=== PATIENT | female | born 1965 | race African-American/Black ===

== ENCOUNTER 2019-03-11 18:50 | Emergency (ER) | payer SELFPAY ==
[2019-03-11] MEDS ORDERED: Ketorolac Tromethamine 30 MG/ML VIAL ONE (19:11)
== END 2019-03-11 19:28 | disposition home or self-care (01) ==
LOC: ERS 18:50
DX: M25.562 Pain in left knee (principal); G89.29 Other chronic pain; F32.9 Major depressive disorder, single episode, unspecified; I10 Essential (primary) hypertension
CPT/HCPCS: 96372; 99283; J1885

== ENCOUNTER 2019-03-28 08:06 | Emergency (ER) | payer SELFPAY ==
[2019-03-28] MEDS ORDERED: cloNIDine 0.1 MG TAB ONE (09:34)
== END 2019-03-28 10:55 | disposition home or self-care (01) ==
LOC: ERS 08:06
DX: J06.9 Acute upper respiratory infection, unspecified (principal); I10 Essential (primary) hypertension; F32.9 Major depressive disorder, single episode, unspecified
CPT/HCPCS: 87804; 99283

== ENCOUNTER 2020-06-21 11:30 | Emergency (ER) | payer SELFPAY | END 2020-06-21 13:29 | disposition home or self-care (01) | LOC: ERS 11:30 | DX: M25.562 Pain in left knee (principal); M54.5 Low back pain; I10 Essential (primary) hypertension | CPT/HCPCS: 99283 ==

== ENCOUNTER 2021-06-09 15:49 | Emergency (ER) | payer SELFPAY ==
[2021-06-09 21:47] LABS: SARS-CoV-2 PCR by NAA Not Detected (NotDetected)
== END 2021-06-09 17:52 | disposition home or self-care (01) ==
LOC: ERS 15:49
DX: R11.0 Nausea (principal); Z20.822 Contact with and (suspected) exposure to COVID-19
CPT/HCPCS: 99283; U0003; U0005

== ENCOUNTER 2021-09-17 11:10 | Emergency (ER) | payer SELFPAY | END 2021-09-17 11:41 | disposition home or self-care (01) | LOC: ERS 11:10 | DX: B86 Scabies (principal); I10 Essential (primary) hypertension | CPT/HCPCS: 99282 ==

== ENCOUNTER 2021-11-11 02:25 | Emergency (ER) | payer SELFPAY ==
[2021-11-11] MEDS ORDERED: cloNIDine 0.1 MG TAB ONE (04:08)
[2021-11-11] MEDS ORDERED: Lisinopril 10 MG TAB ONE (04:08)
[2021-11-11] MEDS ORDERED: Acetaminophen 500 MG TAB ONE (04:08)
[2021-11-11] MEDS ORDERED: Amlodipine 5 MG TAB ONE (04:08)
== END 2021-11-11 05:02 | disposition home or self-care (01) ==
LOC: ERS 02:25
DX: I10 Essential (primary) hypertension (principal); Z79.899 Other long term (current) drug therapy
CPT/HCPCS: 99283

== ENCOUNTER 2022-05-18 06:13 | Emergency (ER) | payer SELFPAY ==
[2022-05-18] MEDS ORDERED: hydrALAZINE 25 MG TAB ONE (08:05)
[2022-05-18] MEDS ORDERED: Lisinopril 10 MG TAB ONE (08:05)
[2022-05-18] MEDS ORDERED: Acetaminophen 500 MG TAB ONE (08:05)
[2022-05-18 08:20] LABS: #Eosinphils 0.2 thou/uL (0.0-0.7); #Lymphocytes 1.6 thou/uL (1.20-3.40); #Monocytes 0.4 thou/uL (0.11-0.59); #Neutrophils 4.6 thou/uL (1.40-6.50); %Basophils 0.7 % (0.0-1.0); %Eosinophils 2.7 % (0.0-10.0); %Lymphocytes 22.8 % (21.0-51.0); %Monocytes 6.5 % (0.0-10.0); %Neutrophils 67.2 % (42.0-75.0); Mean Corpuscular HGB CONC 33.3 g/dL (32.0-36.0); Mean Corpuscular Hemoglobin 30.2 pg (27.0-31.0); Mean Corpuscular Volume 90.7 fl (78.0-98.0); Mean Platelet Volume 6.7 fL (7.4-10.4); Platelet Count 470 10x3/uL (130-400); RBC Distribution Width 12.3 % (11.5-14.5); Red Blood Cell (RBC) Count 4.97 mill/uL (4.20-5.40); White Blood Cell (WBC) Count 6.8 10x3/uL (4.8-10.8)
[2022-05-18 08:32] LABS: ALT (SGPT) 11 U/L (8-55); AST (SGOT) 19 U/L (5-34); Albumin 4.4 g/dL (3.5-5.0); Alkaline Phosphatase 103 U/L (40-110); Anion Gap 15 mmol/L (10-20); BUN (Urea Nitrogen) 13 mg/dL (9.8-20.1); Bilirubin, Total 0.6 mg/dL (0.2-1.2); Calc. Creatinine Clearance 0 mL/min (70-130); Calcium 9.7 mg/dL (7.8-10.44); Carbon Dioxide 24 mmol/L (22-29); Chloride 103 mmol/L (98-107); Estimated GFR 93; Globulin 3.5 g/dL (2.4-3.5); Glucose 99 mg/dL (70-105); Potassium 3.6 mmol/L (3.5-5.1); Protein, Total 7.9 g/dL (6.0-8.3); Sodium 138 mmol/L (136-145)
[2022-05-18 11:40] LABS: Troponin I 0.013 ng/mL (< 0.028)
== END 2022-05-18 13:46 | disposition home or self-care (01) ==
LOC: ERS 06:13
DX: I10 Essential (primary) hypertension (principal); R07.9 Chest pain, unspecified
CPT/HCPCS: 36415; 71045; 80053; 84484; 85025; 93005

== ENCOUNTER 2022-12-13 04:48 | Emergency (ER) | payer SELFPAY ==
[2022-12-13] MEDS ORDERED: Acetaminophen 500 MG TAB ONE (05:21)
== END 2022-12-13 05:41 ==
LOC: ERS 04:48
DX: M54.50 Low back pain, unspecified (principal); I10 Essential (primary) hypertension; Z79.899 Other long term (current) drug therapy
CPT/HCPCS: 99283

== ENCOUNTER 2023-02-26 14:15 | Emergency (ER) | payer OTHER ==
[2023-02-26 16:46] LABS: #Basophils 0.1 thou/uL (0.0-0.2); #Eosinphils 0.1 thou/uL (0.0-0.7); #Monocytes 0.4 thou/uL (0.11-0.59); #Neutrophils 2.1 thou/uL (1.40-6.50); %Lymphocytes 45.9 % (21.0-51.0); %Monocytes 7.7 % (0.0-10.0); %Neutrophils 44.4 % (42.0-75.0); Hematocrit 41.7 % (36.0-47.0); Hemoglobin 13.5 g/dL (12.0-16.0); Mean Corpuscular HGB CONC 32.4 g/dL (32.0-36.0); Mean Corpuscular Hemoglobin 29.4 pg (27.0-31.0); Mean Corpuscular Volume 90.8 fl (78.0-98.0); Mean Platelet Volume 8.5 fL (7.4-10.4); Platelet Count 509 10x3/uL (130-400); RBC Distribution Width 17.4 % (11.5-14.5); Red Blood Cell (RBC) Count 4.59 mill/uL (4.20-5.40); White Blood Cell (WBC) Count 4.8 10x3/uL (4.8-10.8)
[2023-02-26 17:13] LABS: ALT (SGPT) 9 U/L (8-55); AST (SGOT) 16 U/L (5-34); Albumin 4.8 g/dL (3.5-5.0); Alkaline Phosphatase 135 U/L (40-110); Anion Gap 14 mmol/L (10-20); BUN (Urea Nitrogen) 17 mg/dL (9.8-20.1); Bilirubin, Total 0.5 mg/dL (0.2-1.2); Calc. Creatinine Clearance 0 mL/min (70-130); Calcium 9.5 mg/dL (7.8-10.44); Carbon Dioxide 23 mmol/L (22-29); Chloride 105 mmol/L (98-107); Estimated GFR 72; Globulin 3.4 g/dL (2.4-3.5); Glucose 102 mg/dL (70-105); Potassium 3.7 mmol/L (3.5-5.1); Protein, Total 8.2 g/dL (6.0-8.3); Sodium 138 mmol/L (136-145)
[2023-02-26 17:16] LABS: Troponin I Less than 0.010 ng/mL (< 0.028)
[2023-02-26] MEDS ORDERED: Morphine 4 MG/ML VIAL ONE (17:23)
[2023-02-26] MEDS ORDERED: cloNIDine 0.1 MG TAB ONE (18:57)
== END 2023-02-26 20:15 | disposition home or self-care (01) ==
LOC: ERS 14:15
DX: M25.562 Pain in left knee (principal); M25.561 Pain in right knee; I10 Essential (primary) hypertension
CPT/HCPCS: 36415; 71045; 80053; 84484; 85025; 93005; 96361; 96374; J2270